=== PATIENT | male | born 1980 | race American Indian/Alaskan Native ===

== ENCOUNTER 2017-08-03 22:21 | Emergency (ER) | payer SELFPAY ==
[2017-08-03 22:36] VITALS: RESP 18; TEMP 98.6
[2017-08-03] MEDS ORDERED: Sodium Chloride 0.9% 1,000 ML IV STA (23:21)
--- NOTE | 2017-08-03 23:31 | ED PDOC ---
Arrival/HPI - General Historian: Patient <Kadie Pimentel - Last Filed: 08/04/17 00:36> <Daniel Oakley - Last Filed: 08/04/17 01:04> - General Chief Complaint: GI Problem Time Seen by Provider: 08/03/17 23:21 - History of Present Illness Narrative History of Present Illness (Text): 08/03/17 23:26 37yo male with no PMhx present with complaint of 2episodes of bright red per rectum with BM today. Also notes bubbling LUQ abdominal pain. He states he is currently not in pain. Denies history of straining. Denies nausea, vomiting, diarrhea, melena, chest pain, SOB, urinary symptoms, any other complaint. (Kadie Pimentel A) Past Medical History - Provider Review Nursing Documentation Reviewed: Yes - Psychiatric Hx Substance Use: No <LorenKadie Lazcano - Last Filed: 08/04/17 00:36> Family/Social History - Physician Review Nursing Documentation Reviewed: Yes Family/Social History: Unknown Family HX Smoking Status: Never Smoked Hx Alcohol Use: No Hx Substance Use: No <Kadie Pimentel A - Last Filed: 08/04/17 00:36> Allergies/Home Meds <LorenKadie A - Last Filed: 08/04/17 00:36> <Daniel Oakley - Last Filed: 08/04/17 01:04> Allergies/Adverse Reactions: Allergies shellfish derived Allergy (Verified 08/03/17 22:31) SWELLING Review of Systems - Physician Review All systems were reviewed & negative as marked: Yes - Review of Systems Constitutional: Normal Eyes: Normal ENT: Normal Respiratory: Normal Cardiovascular: Normal Gastrointestinal: Abdominal Pain, Hematochezia. absent: Constipation, Diarrhea , Nausea, Vomiting, Hematemesis Genitourinary Male: Normal Musculoskeletal: Normal Skin: Normal Neurological: Normal Endocrine: Normal Hemo/Lymphatic: Normal Psychiatric: Normal <LorenKadie Lazcano - Last Filed: 08/04/17 00:36> Physical Exam Vital Signs Reviewed: Yes Temperature: Afebrile Blood Pressure: Normal Pulse: Regular Respiratory Rate: Normal Appearance: Positive for: Well-Appearing, Non-Toxic, Comfortable Pain Distress: None Mental Status: Positive for: Alert and Oriented X 3 - Systems Exam Head: Present: Atraumatic, Normocephalic Pupils: Present: PERRL Extroacular Muscles: Present: EOMI Conjunctiva: Present: Normal Mouth: Present: Moist Mucous Membranes Neck: Present: Normal Range of Motion Respiratory/Chest: Present: Clear to Auscultation, Good Air Exchange. No: Respiratory Distress, Accessory Muscle Use Cardiovascular: Present: Regular Rate and Rhythm, Normal S1, S2. No: Murmurs Abdomen: Present: Normal Bowel Sounds, Other (Soft). No: Tenderness, Distention , Peritoneal Signs, Rebound, Guarding, McBurney's Point Tender, Rovsing's Sign Present Back: Present: Normal Inspection Upper Extremity: Present: Normal Inspection. No: Cyanosis, Edema Lower Extremity: Present: Normal Inspection. No: Edema Neurological: Present: GCS=15, CN II-XII Intact, Speech Normal Skin: Present: Warm, Dry, Normal Color. No: Rashes Psychiatric: Present: Alert, Oriented x 3, Normal Insight, Normal Concentration <Kadie Pimentel - Last Filed: 08/04/17 00:36> Vital Signs Temp Pulse Resp BP Pulse Ox 08/03/17 22:33 98.6 F 70 18 132/92 H 96 Medical Decision Making <Kadie Pimentel - Last Filed: 08/04/17 00:36> <Daniel Oakley - Last Filed: 08/04/17 01:04> ED Course and Treatment: 08/04/17 00:29 Pt in ED for stated history. He was hemodynamically stable. He had positive Guaic test. His H/H was however WNL. Elevated LFT and mild elevation of the Lipase was noted. PT was comfortable in ED with benign PE. Result was DW the patient. He is stable for DC. He will be DC home with a rx of Protonix and referred to the clinic/GI for further outpt evaluation. Advised tRT ED for any new or worsening symptoms. (Kadie Pimentel A) - Lab Interpretations Lab Results: 08/03/17 22:45 08/03/17 22:45 Lab Results 08/04/17 00:30: Urine Color Light yellow, Urine Appearance Clear, Urine pH 7.0, Ur Specific [place] 1.020, Urine Protein Negative, Urine Glucose (UA) Negative, Urine Ketones Negative, Urine Blood Negative, Urine Nitrate Negative, Urine Bilirubin Negative, Urine Urobilinogen 0.2, Ur Leukocyte Esterase Negative 08/03/17 22:45: Sodium 143, Potassium 4.1, Chloride 107, Carbon Dioxide 26, Anion Gap 14, BUN 13, Creatinine 1.2, Est GFR ( Amer) > 60, Est GFR (Non- Af Amer) > 60, Random Glucose 101, Calcium 9.1, Total Bilirubin 0.4, AST 62 H, ALT 93 H, Alkaline Phosphatase 94, Total Protein 7.2, Albumin 4.1, Globulin 3.1 , Albumin/Globulin Ratio 1.3, Lipase 379 H 08/03/17 22:45: PT 10.8, INR 0.95, APTT 31.7 08/03/17 22:45: WBC 4.9, RBC 4.99, Hgb 14.2, Hct 43.7, MCV 87.6, MCH 28.5, MCHC 32.5, RDW 14.1, Plt Count 230, MPV 10.3, Gran % 45.6 L, Lymph % (Auto) 39.5 H, [place] % (Auto) 11.9 H, Eos % (Auto) 2.4, Baso % (Auto) 0.6, Gran # 2.25, Lymph # 2.0, [place] # 0.6, Eos # 0.1, Baso # 0.03 - Medication Orders Current Medication Orders: Discontinued Medications Sodium Chloride (Sodium Chloride 0.9%) 1,000 mls @ 1,000 mls/hr IV .Q1H STA Stop: 08/04/17 00:20 Last Admin: 08/03/17 23:55 Dose: 1,000 mls/hr eMAR Start Stop Document 08/03/17 23:55 [id number] Intravenous Solution Start Date 08/03/17 Start Time 23:55 End Date 08/04/17 End time 00:55 Total Infusion Time 60 Pantoprazole Sodium (Protonix Inj) 40 mg IVP STAT STA Stop: 08/03/17 23:22 Last Admin: 08/03/17 23:50 Dose: 40 mg IVP Administration Document 08/03/17 23:50 JOL (Rec: 08/04/17 00:21 [id number] Charges for Administration # of IVP Administrations 1 - PA / [employer] / Resident Statement /DO has reviewed & agrees with the documentation as recorded. <Daniel Oakley - Last Filed: 08/04/17 01:04> Disposition/Present on Arrival - Present on Arrival Any Indicators Present on Arrival: No History of DVT/PE: No History of Uncontrolled Diabetes: No Urinary Catheter: No History of Decub. Ulcer: No History Surgical Site Infection Following: None - Disposition Have Diagnosis and Disposition been Completed?: Yes Disposition Time: 00:40 Patient Plan: Discharge <Kadie Pimentel - Last Filed: 08/04/17 00:36> <Daniel Oakley - Last Filed: 08/04/17 01:04> - Disposition Diagnosis: Abdominal pain, GI bleed Disposition: HOME/ ROUTINE Patient Problems: Current Active Problems Problem Status Onset Abdominal pain Acute GI bleed Acute Condition: STABLE Discharge Instructions (ExitCare): Gastrointestinal Bleeding (ED) Additional Instructions: Follow up with your Doctor/Television Technician Return to ED for any new or worsening symptoms Prescriptions: Pantoprazole Sodium [Protonix] 40 mg PO DAILY #15 ect Referrals: Ela Ludwig, [Primary Care Provider] - Follow up with primary Herbert Messina MD [Staff Provider] - Follow up with primary Forms: [employer] (Italian)
[2017-08-03 23:41] LABS: ALB/GLOB RATIO 1.3 (1.1-1.8); ALBUMIN 4.1 g/dL (3.0-4.8); CALCIUM 9.1 mg/dL (8.4-10.5); GFR AFRICAN-AMERICAN > 60; GFR NON-AFRICAN AMERICAN > 60; LIPASE 379 U/L (23-300)
[2017-08-03 23:49] LABS: ALT/SGPT 93 U/L (7-56); AST/SGOT 62 U/L (17-59); BLOOD UREA NITROGEN 13 mg/dL (7-21)
[2017-08-04 00:08] LABS: HEMOGLOBIN 14.2 g/dL (14.0-18.0); MEAN CELL VOLUME 87.6 fl (80.0-105.0); MEAN CORPUSCULAR HEMOGLOBIN 28.5 pg (25.0-35.0); MEAN CORPUSCULAR HGB CONC 32.5 g/dl (31.0-37.0); RBC 4.99 10^6/uL (3.5-6.1); RED CELL DISTRIBUTION WIDTH 14.1 % (11.5-14.5); WHITE BLOOD COUNT 4.9 10^3/ul (4.5-11.0)
[2017-08-04 00:09] LABS: BASO # 0.03 K/mm3 (0.0-2.0); BASO % 0.6 % (0.0-3.0); EOS # 0.1 (0.0-0.7); EOS % 2.4 % (1.5-5.0); GRAN # 2.25 (1.4-6.5); GRAN % 45.6 % (50.0-68.0); LYMPH % 39.5 % (22.0-35.0); MEAN PLATELET VOLUME 10.3 fl (7.0-11.0); MONO # 0.6 (0.1-0.6); MONO % 11.9 % (1.0-6.0)
[2017-08-04 00:10] LABS: INR 0.95 (0.93-1.08); PARTIAL THROMBOPLASTIN TIME 31.7 Seconds (25.1-36.5); PROTHROMBIN TIME 10.8 SECONDS (9.4-12.5)
[2017-08-04 00:52] LABS: URINE BILIRUBIN NEGATIVE (NEGATIVE); URINE BLOOD NEGATIVE (NEGATIVE); URINE GLUCOSE (UA) NEGATIVE (NEGATIVE); URINE LEUKOCYTE ESTERASE NEGATIVE Leu/uL (NEGATIVE); URINE NITRATE NEGATIVE (NEGATIVE); URINE PROTEIN NEGATIVE mg/dL (<30 mg/dL); URINE UROBILINOGEN 0.2 E.U./dL (<1 E.U./dL)
[2017-08-04 01:02] LABS: URINE APPEARANCE CLEAR (CLEAR); URINE COLOR LIGHT YELLOW (YELLOW)
[2017-08-04 02:11] VITALS: BP 127/82; PULSE 74; O2SAT 98
== END 2017-08-04 01:05 | disposition home or self-care (01) ==
LOC: ED 22:21
DX: K92.2 Gastrointestinal hemorrhage, unspecified (principal); R10.9 Unspecified abdominal pain
CPT/HCPCS: 80053; 81003; 83690; 85025; 85610; 85730; 96361; 96374; 99284; C9113; J7040